=== PATIENT | female | born 1950 | race Caucasian/White ===

== ENCOUNTER 2024-11-28 14:17 | Outpatient (AMB) | payer MEDICARE, SELFPAY ==
[2024-11-28 14:25] VITALS: BP 144/88; PULSE 66; RESP 16; TEMP 36.2; O2SAT 99; BMI 28.9
--- NOTE | 2024-11-28 14:25 | GYNCLNT_ITS ---
Vital Signs 11/28/24 14:25 Height 1.65 m Height Method Stated Weight 78.925 kg Weight Measurement Method Standing Scale BMI 28.9 BP 144/88 H Blood Pressure Source Automatic Cuff Blood Pressure Location Left Upper Arm Position Sitting Respiration 16 Pulse 66 Pulse Source Monitor Temp 97.2 F Temp Source Oral Pulse Oximetry (%) 99 Oxygen Delivery Method Room Air Allergies/Home Meds Allergies & Medications Allergies Penicillins Allergy (Verified 11/28/24 14:27) Medication Reconciliation aspirin 81 mg tablet,delayed release 81 mg PO QDAY 11/28/24 [History Confirmed 11/28/24] atorvastatin 40 mg tablet 40 mg PO QDAY 11/28/24 [History Confirmed 11/28/24] hydrochlorothiazide 12.5 mg capsule 12.5 mg PO QAM 11/28/24 [History Confirmed 11/28/24] levothyroxine 125 mcg capsule 125 mcg PO QDAY 11/28/24 [History Confirmed 11/28/24] magnesium oxide 400 mg PO QDAY 11/28/24 [History Confirmed 11/28/24] mecobalamin (vitamin B12) 1,000 mcg chewable tablet (B12 Active) 1,000 mcg PO QDAY 11/28/24 [History Confirmed 11/28/24] metoprolol succinate 25 mg tablet,extended release 24 hr 25 mg PO QDAY 11/28/24 [History Confirmed 11/28/24] Intake Visit Data Collection New Patient or Established: New Patient (never been to [facility]) Reason for Visit:: Repeat Pap Consent obtained for Telemed Visit: No Seen by Clinical Staff ONLY (RN/MA): No Facilities Manager Required: No Do You Feel Safe at Home: Yes Authorities Contacted: N/A PCP or OBGYN visit in last 3 months: Yes Hx Now: No Are you currently on any form of Control: No Pain Present Currently: No Pain Scale Used: Alvarado-Arias/Numerical Pain scale:: 0 Smoking Status Smoking Status: Current every day smoker Cessation Counseling Provided: NORMA was advised that quitting smoking is the single most important factor to protect the health of themselves and their family. Discussed the benefits of quitting smoking with patient. Encouraged patient to quit smoking and provided Cessation assistance materials and resources. 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 1. Little interest or pleasure in doing things: not at all 2. Feeling down, depressed, or hopeless: not at all Total score: 0 Depression screen completed yes Social History Living Situation History Marital Status: Lives With: Family Housing: House Tobacco History Smoking Status: Current every day smoker Alcohol History Alcohol Intake: Never Domestic Abuse History Do You Feel Safe at Home: Yes Past Medical History Past Medical History Have you ever been diagnosed with any of the following: Neurological Problems Brain Tumor: Yes (Acoustic Neuroma) Reproductive Problems Breast Cancer: Yes History of Present Illness HPI Narrative Pt is a 74 y/o female who has a hx of abn paps and LEEP in the past with an extensive medical hx and on multiple meds at home who presents for a repeat Pap for an ASCUS +HPV pap recently. She states she released her medical records from [place] [employer] but they are not available for review. Review of Systems Review of Systems Narrative Review of Systems: Pt denies post menopausal VB, dysparunia or urinary complaints. No vaginal odor or discharge Exam General Limitations: no limitations General Appearance: alert, in no apparent distress, comfortable, cooperative, healthy appearing, well developed and well groomed Neck Neck exam: Present normal inspection, full ROM and trachea midline Chest Chest inspection: Present normal inspection and symmetric chest wall rise Exp Chest Breast: bilateral: other (Scars from breast surgery bilaterally) Resp Respiratory exam: Present normal lung sounds bilaterally Card Cardiovascular exam: Present regular rate, normal rhythm and normal heart sounds Abdominal Abdominal exam: Present soft and normal bowel sounds External exam: Present normal external exam Speculum exam: Present normal speculum exam Bimanual exam: Present normal bimanual exam Extremities Extremities exam: Present normal inspection and full ROM Psych Psychiatric exam: Present normal affect and normal mood Skin Skin exam: Present warm, dry, intact and normal color Assessment & Plan Diagnosis / Problem List (1) ASCUS with positive high risk HPV cervical: Status: Acute Plan: Repeat Pap done today. Pt to release all medical records so they can be scanned into the computer Additional Plan Follow Up: 1 Year Advanced Care Planning Advance care planning discussed with:: other (none) Office Procedures OB Clinic LOC & Office Proc's Nursing/Assessment Patient Status: Initial/New Patient OB Clinic Nursing Assessment: BP Monitoring, Medication Reconciliation, Update PMH in EMR and Vital Signs OB Clinic Coordination of Care: Consent,records obtained, informed consent, Education Simp Pt/Fam, Lab and Imaging orders and Staff clarify orders Miscellaneous Interventions: Pelvic/Pap Smear Set up New Patient Charge New Patient Point Assignment: 1109 New Patient Point Charge: NURSING HOME ASSISTANT Level 3 (2257-7014) [employer]: Papsmear Pap Smear Procedure [place]arone in room during procedure?: No Pre-op diagnosis general: ASCUS pap Post-op diagnosis procedure note: Same Procedure Notes:: Pap with HPV testing performed Papsmear completed: yes
== END 2024-11-28 15:01 | disposition home or self-care (01) ==
LOC: HODSOBC 14:17
PROVIDERS: PCP Family Medicine; Supervising Provider Obstetrics & Gynecology; Visit Provider Obstetrics & Gynecology
DX: R87.610 Atypical squamous cells of undetermined significance on cytologic smear of cervix (ASC-US) (principal); R87.810 Cervical high risk human papillomavirus (HPV) DNA test positive
CPT/HCPCS: 99203; Q0091; G0463